=== PATIENT | male | born 1970 | race Caucasian/White ===

== ENCOUNTER 2022-09-15 15:12 | Outpatient (CLI) | payer BC | END 2022-09-15 23:59 | disposition home or self-care (01) | LOC: RAD 15:12 | PROVIDERS: ATTEND Family Medicine | DX: R13.14 Dysphagia, pharyngoesophageal phase (principal); K21.9 Gastro-esophageal reflux disease without esophagitis | CPT/HCPCS: 74230 ==

== ENCOUNTER → 2025-01-17 | Day surgery (SDC) | payer BC, OTHER ==
[2025-01-10 10:00] LABS: BASOPHILS # (AUTO) 0.1 X10'3 (0-0.2); BASOPHILS % (AUTO) 0.8 % (0-1); EOSINOPHILS # (AUTO) 0.2 X10'3 (0-0.9); EOSINOPHILS % (AUTO) 2.3 % (0-6); HEMATOCRIT 46.3 % (42.0-52.0); HEMOGLOBIN 15.8 g/dl (14.0-17.9); LYMPHOCYTES # (AUTO) 1.5 X10'3 (1.1-4.8); LYMPHOCYTES % (AUTO) 20.9 % (21-51); MEAN CORPUSCULAR HEMOGLOBIN 32.8 PG (27.0-31.0); MEAN CORPUSCULAR HGB CONC 34.2 g/dL (33.0-36.5); MEAN CORPUSCULAR VOLUME 96.1 FL (78-98); MEAN PLATELET VOLUME 6.6 FL (7.4-10.4); MONOCYTES # (AUTO) 0.6 X10'3 (0-0.9); NEUTROPHILS # (AUTO) 4.8 X10'3 (1.8-7.7); PLATELET COUNT 310 X10'3 (140-440); RED BLOOD COUNT 4.82 X10'6 (4.70-6.10); RED CELL DISTRIBUTION WIDTH 12.8 % (11.5-14.5); WHITE BLOOD COUNT 7.1 X10'3 (4.5-11.0)
[2025-01-10 10:09] LABS: ALANINE AMINOTRANSFERASE 36 U/L (12-78); ALBUMIN/GLOBULIN RATIO 1.2 (1.1-1.5); ALKALINE PHOSPHATASE 63 IU/L (46-116); ANION GAP 10 (8-16); ASPARTATE AMINO TRANSFERASE 27 U/L (10-37); BILIRUBIN,TOTAL 0.8 MG/DL (0.1-1.0); BLOOD UREA NITROGEN 23 MG/DL (7-18); BUN/CREATININE RATIO 22.1 (10.0-20.0); CALCIUM 9.3 MG/DL (8.5-10.1); CHLORIDE 105 MMOL/L (99-107); CREATININE 1.04 MG/DL (0.60-1.10); GLUCOSE 94 MG/DL (70-104); POTASSIUM 4.7 MMOL/L (3.5-5.1); SODIUM 142 MMOL/L (135-145); TOTAL CARBON DIOXIDE 27.5 MMOL/L (24-32); TOTAL PROTEIN 7.3 G/DL (6.4-8.2); eGFR 74 ML/MIN
[2025-01-17] VITALS (11 sets, daily range): BP systolic 98–141; BP diastolic 57–86; PULSE 46–88; RESP 13–18; TEMP 98.1–98.3; O2SAT 96–100
[~2025-01-17] VITALS: Ht 177.8 cm; Wt 76.0 kg
[~2025-01-17] MED LIST: BUPIVAcaine 2.5mg/ml inj 50ml vial (contains preservative) ONE; ESOM20CA PO; FAMO20TA8 PO; FISH OIL; HYDROmorphone/PF 0.2 MG/ML SYRINGE IV PRN; LIDOcaine 1% 30ml preserv. free vial ONE; LIDOcaine 2% (20mg/ml) 5ml vial ONE; LidoCAINE 2% Topical Jelly 11mL syringe (UROJET) TOP ONE; RED YEAST RICE; VIT D; VITAMIN B 12; VITAMIN B COMPLEX; ZINC; [UNRECOGNIZED DRUG - OTHER]; acetaminophen 1,000mg/100ml IV 100 ML IV PRN; dexamethasone sod phosphate 4mg/ml inj. ONE; fentaNYL /PF 50mcg/ml 5ml ampule ONE; hydrALAZINE 20mg/ml inj. IV PRN; labetalol 20mg/4ml (5mg/ml) syringe IV PRN; meperidine/PF 25mg/ml syringe IV PRN; midazolam 1 mg/ML 2ml injection ONE; morphine 2 MG/ML inj. syringe IV PRN; morphine 4 MG/ML inj SYRINge IV PRN; neostigmine methylsulfate 1 MG/ML 10ml vial ONE; ondansetron/PF 4mg/2ml inj IV PRN; ondansetron/PF 4mg/2ml inj ONE; proCHLORperazine 10 MG/2 ml inj IV PRN; propofol inj 20 ML IV ONE; ringers solution, lacted 1,000 ML IV SCH; rocuronium 10mg/ml inj IV ONE
[2025-01-17] MEDS: ceFAZolin 2gm/dext,iso 50mL 50 ML IV ONE (06:25)
[2025-01-17] MEDS: ringers solution, lacted 1,000 ML IV SCH (06:39)
[2025-01-17] MEDS: famotidine 20mg tablet PO ONE (06:39)
--- NOTE | 2025-01-17 07:28 | HISTORY AND PHYSICAL ---
History & Physical Providers to CC CC: SAMMI MCCANN MD ~ History of Present Illness Reason for Admit\Complaint: Right inguinal hernia History of Present Illness Interval history and physical exam Patient was seen in the office greater than 30 days ago and diagnosed (radiol ogically and clinically) with a symptomatic right inguinal hernia He is here for elective repair He denies any change in his past medical history (please see previous history and physical exam for all pertinent details) He is scheduled for robotic assisted, laparoscopic right, possible left inguinal hernia repair with mesh Allergies: Coded Allergies: No Known Allergies (Unverified , 01/16/25) Home Medications Home Medications Active Reported [Red Yeast Rice] Unknown Strength Unknown Dose [Ca/Mg/Zinc/Vit D] Unknown Strength Unknown Dose [Vitamin B Complex] Unknown Strength Unknown Dose [Vitamin B 12] Unknown Strength Unknown Dose [Fish Oil] Unknown Strength Unknown Dose Famotidine 20 Mg Tablet 1 Tab PO DAILY 30 Days Nexium* (Esomeprazole Magnesium) 20 Mg Capsule 1 Cap PO DAILY ROS ROS Reviewed and negative Exam General: 54-year-old male in no acute distress Chest: Lungs clear to auscultation bilaterally Cardiovascular: Regular rate and rhythm without murmurs Abdomen: Soft and nondistended; right side marked with ink pen Problems: (1) Right inguinal hernia Assessment & Plan: The risks, benefits, and alternatives to a robotic assisted, laparoscopic right, possible left inguinal hernia repair with mesh were discussed with the patient and his spouse. Risks include, but are not limited to, bleeding, infection, injury to intra-abdominal structures, hernia recurrence and chronic postoperative pain. Patient verbalized understanding and wishes to proceed with surgery. We will do so today as scheduled SAMMI MCCANN MD January 17, 2025 07:28
[2025-01-17] MEDS: BUPIVAcaine/PF 2.5 mg/ml (0.25%) 30ml vial IJ ONE (07:34)
[2025-01-17] MEDS: HYDROmorphone/PF 0.2 MG/ML SYRINGE IV PRN (09:06)
--- NOTE | 2025-01-17 09:20 | OPERATIVE REPORT ---
Operative Report Providers to CC: EDILBERTO MCCANN MD ~ Date of Procedure: January 17, 2025 Pre-Operative Diagnosis: Right inguinal hernia Post-Operative Diagnosis Bilateral inguinal hernia Procedure Performed Robotic assisted, laparoscopic bilateral inguinal hernia repair with mesh Surgeon: Edilberto Mccann MD FACS Stiff Leg Operator None Anesthesiologist: Ashley Gimenez Type of Anesthesia: General Findings: Indirect right inguinal hernia Indirect left inguinal hernia Wound class one Complications None Prosthetics\Implants used: Large Dextile mesh-bilateral Estimated Blood Loss: Minimal Specimen Removed: None Description of Procedure: Patient was brought to the operating room and identified by the nursing staff and the attending physician. Patient was placed supine and general anesthesia was induced. The patient's abdomen was prepped and draped in the standard sterile fashion. Preoperative antibiotics were given. Supraumbilical, midline incision was made to accommodate a 12 mm Gallagher port. Gallagher technique was used to gain access into the abdomen and the port was anchored to the fascia with 0 Vicryl suture. Abdomen was insufflated without incident. Laparoscope was ins erted and the pelvis examined. Patient was placed in Trendelenburg position. Secondary, 8.5 mm robotic trochars were then placed in the right lateral left lateral upper abdomen just above the umbilical line. These were placed under laparoscopic guidance. Local anesthetic was infiltrated prior to their insertion. The da Zakia robotic arm was docked to the patient. Instruments w ere guided intra-abdominally under laparoscopic visualization. Peritoneal rent was created starting at the left anterior superior iliac spine and carried across the anterior abdominal wall to the contralateral anterior superior iliac spine. The peritoneal flap was created and carried down to the symphysis pubis. Dissection was carried out bilaterally. On the right, a moderate-sized indirect inguinal hernia was encountered and reduced. On the left, a small to moderate-sized indirect inguinal hernia was encountered and reduced. Peritoneum was dissected away from the cord structures and out laterally to accommodate 2 separate pieces of large Dextile mesh. Bilateral critical views of the myopectineal orifice were obtained. Mesh and suture was passed into the abdomen. Bilateral mesh was placed covering potential obturator, femoral, direct, and indirect hernia spaces. Mesh was anchored at Oscar's ligament, rectus muscle in the midline, and out laterally just anterior to the anterior superior iliac spine. Mesh laid without wrinkles or folds. Peritoneal rent was then reapproximated with running, absorbable 2/0 V-lock suture. [place] were retrieved. Abdomen was allowed to desufflate after instruments removed and da Zakia robotic arm undocked from the patient. Umbilical port was removed as were the secondary trochars. The fascia at the umbilical port site was closed with 0 Vicryl sutures. Skin was closed at all sites with 4-0 Monocryl sutures in a subcuticular fashion. Sterile dressings were applied. Patient was awakened and taken to the postanesthesia care unit in stable condition. Counts repoted as correct: Yes EDILBERTO MCCANN MD January 17, 2025 09:20
[2025-01-17] MEDS: HYDROcodone/acetaminophen 5mg/325mg tablet PO PRN (11:56)
== END | disposition home or self-care (01) ==
LOC: PAS 05:51
PROVIDERS: ATTEND Surgery
DX: K40.20 Bilateral inguinal hernia, without obstruction or gangrene, not specified as recurrent (principal); K21.9 Gastro-esophageal reflux disease without esophagitis; Z79.899 Other long term (current) drug therapy; Z98.890 Other specified postprocedural states
CPT/HCPCS: 36415; 49650; 80053; 82948; 85025; C1781; J1100; J1171; J2003; J2250; J2405; J2704; J2710; J3010; J3490; J7030; J7120; S2900; Z7506; Z7508; Z7512; A4215; A4314; A4618

== ENCOUNTER → 2025-05-09 | Day surgery (SDC) | payer OTHER ==
[2025-05-02 10:38] LABS: MEAN PLATELET VOLUME 6.5 FL (7.4-10.4); PRE OP HEMATOCRIT 44.9 % (42.0-52.0); PRE OP HEMOGLOBIN 15.6 g/dL (14.0-17.9); PRE OP PLATELET COUNT 300 X10'3 (140-440); PRE OP WHITE BLOOD COUNT 7.1 10'3 (4.8-10.8); RED CELL DISTRIBUTION WIDTH 12.8 % (11.5-14.5)
[2025-05-02 11:09] LABS: CREATININE 0.95 MG/DL (0.60-1.10); PRE OP ALT 38 U/L (30-65); PRE OP ANION GAP 10 (8-16); PRE OP AST 21 U/L (10-37); PRE OP BILIRUB, TOTAL 0.6 MG/DL (0.0-1.0); PRE OP GLUCOSE 100 MG/DL (70-104); PRE OP POTASSIUM 4.3 MMOL/L (3.4-5.1); PRE OP SODIUM 144 MMOL/L (135-145); TOTAL CARBON DIOXIDE 28.6 MMOL/L (24-32); eGFR 82 ML/MIN
[~2025-05-09] VITALS: Ht 175.3 cm; Wt 73.6 kg
[2025-05-09] VITALS (16 sets, daily range): BP systolic 113–144; BP diastolic 63–84; PULSE 59–112; RESP 8–16; TEMP 98; O2SAT 91–100
[~2025-05-09] MED LIST changes: +CALC625T31 PO; -FAMO20TA8 PO; -FISH OIL; +LACT1CAP26 PO; +LIDOcaine 1% (10mg/ml)w/preservative inj. 20ml MDV ONE; -LIDOcaine 1% 30ml preserv. free vial ONE; -LidoCAINE 2% Topical Jelly 11mL syringe (UROJET) TOP ONE; +MAG/CAL/ZINC; +OMEG-5 PO; +SAW PALMETTO; -VIT D; -VITAMIN B 12; -VITAMIN B COMPLEX; -ZINC; -[UNRECOGNIZED DRUG - OTHER]; -acetaminophen 1,000mg/100ml IV 100 ML IV PRN; +ePHEDrine 50MG/ML INJ. ONE; +glycopyrrolate 0.2mg/ml inj ONE; -meperidine/PF 25mg/ml syringe IV PRN; -morphine 2 MG/ML inj. syringe IV PRN; -neostigmine methylsulfate 1 MG/ML 10ml vial ONE; -proCHLORperazine 10 MG/2 ml inj IV PRN; -ringers solution, lacted 1,000 ML IV SCH
[2025-05-09] MEDS: ringers solution, lacted 1,000 ML IV SCH ×2 (06:01→09:52)
--- NOTE | 2025-05-09 07:34 | HISTORY AND PHYSICAL ---
History & Physical Providers to CC CC: SAMMI MCCANN MD ~ History of Present Illness Reason for Admit\Complaint: Symptomatic paraesophageal hernia History of Present Illness 54-year-old patient with known paraesophageal hernia, intractable reflux Interval history and physical exam Patient was seen in the office greater than 30 days ago for follow up regarding his EGD with biopsy He has a [id number] sliding hiatal (type 1 paraesophageal) hernia He denies any change in his past medical history since he was seen in the office (please see previous history and physical exam for all pertinent details) He is scheduled today for a robotic assisted, laparoscopic paraesophageal hernia repair with mesh Allergies: Coded Allergies: No Known Allergies (Unverified , 01/16/25) Home Medications Home Medications Active Reported Culturelle (Lactobacillus Rhamnosus) 10 Billion Cell Capsule 1 Cap PO DAILY Fiber Tabs (Calcium Polycarbophil) 625 Mg Tablet 5 Tab PO DAILY Fish Oil 1,000 Mg Softgel (Docosahexanoic Acid/Epa) 300 Mg-1,000 Mg Capsule 1 Cap PO DAILY WITH MEALS [Red Yeast Rice] [Saw [place]] [Mag/Ruperto/Zinc] Nexium* (Esomeprazole Magnesium) 20 Mg Capsule 1 Cap PO DAILY Exam Vitals: Vital Signs Date Time Temp Pulse Resp B/P (MAP) Pulse Ox O2 Delivery O2 Flow Rate FiO2 05/09/25 05:39 98.0 59 16 116/65 (82) 98 05/09/25 05:39 Room Air Chest: Lungs clear to auscultation bilaterally Cardiovascular: Regular rate and rhythm without murmurs Abdomen: Soft and nondistended Problems: (1) Paraesophageal hernia Assessment & Plan: The risks, benefits, and alternatives to a robotic assisted, laparoscopic paraesophageal hernia repair with mesh were discussed with the patient. Risks include, but are not limited to, bleeding, infection, injury to intra-abdominal structures, hernia recurrence and the need for additional surgical procedures. Patient verbalized understanding and wishes to proceed wit h surgery. We will do so today as scheduled SAMMI MCCANN MD May 09, 2025 07:34
[2025-05-09] MEDS: ceFAZolin 2gm/dext,iso 50mL 50 ML IV ONE (07:38)
[2025-05-09] MEDS: BUPIVAcaine/PF 2.5 mg/ml (0.25%) 30ml vial IJ ONE (07:53)
[2025-05-09] MEDS: LIDOcaine 1% 30ml preserv. free vial IJ ONE (07:53)
--- NOTE | 2025-05-09 09:54 | OPERATIVE REPORT ---
Operative Report Providers to CC CC: EDILBERTO MCCANN MD ~ Date of Procedure: May 09, 2025 Pre-Operative Diagnosis: Paraesophageal hernia Post-Operative Diagnosis SAME as PRE-Op Procedure Performed Robotic assisted, laparoscopic paraesophageal hernia repair with mesh Surgeon: Edilberto Mccann MD FACS Service Mechanic None Anesthesiologist: Ashley Gimenez Type of Anesthesia: General Findings: Type 1 paraesophageal (sliding hiatal) hernia Wound class I Complications None Prosthetics\Implants used: Phasix mesh Estimated Blood Loss: 10 cc Specimen Removed: GE fat pad excised and discarded Description of Procedure: Patient was brought to the operating room and identified by the nursing staff and the attending physician. Patient was placed supine and general anesthesia was induced. Preoperative antibiotics were given. Villanueva catheter was placed. The abdomen was prepped and draped in the standard sterile fashion. At Mendoza's point, Veress needle technique was used through a stab incision to access and insufflate the abdomen. This was accomplished without incident. An optical, 12 mm trocar was used to gain access to the abdomen in the left upper quadrant under laparoscopic visualization. Additional 8.5 mm robotic trochars were placed under laparoscopic visualization in the left lateral upper abdomen, left epigastrium and right upper quadrant. Patient was placed in steep, reverse Trendelenburg position. The da Zakia robotic arm was docked to the patient and instruments guided into the abdomen under laparoscopic visualization. The left lobe of the liver was lifted and the hiatus inspected. Moderate-sized hiatal defect was noted consistent with a type I paraesophageal hernia. An 18 inch, 0, V-Loc suture was used to sling the left lobe of the liver up to the anterior abdominal wall. With the stomach retracted towards the patient's left upper quadrant, dissection was initiated along the pars flaccida and the lesser sac was entered. The lesser omentum was divided up to the right trace. There was a replaced left hepatic artery that was preserved and protected throughout the case. Dissection was carried in to the mediastinum. The mediastinal space was entered. Dissection was then carried posteriorly along the right trace, taking care to leave peritoneum overlying the muscles. Once the posterior decussation was encountered, attention was then turned to the short gastric vessels. Stomach was retracted toward the patient's right and the short gastric vessels were placed on tension. The short gastric vessels were divided along the upper portion of the greater curvature, up to the phrenoesophageal ligament which was also then divided. The peritoneal reflection of the left cru s was opened and dissection carried up until the apex of the crura was reached. Dissection was carried up into the mediastinum, mobilizing the esophagus from the retrocardiac space and taking care not to injure the bilateral pleura. The entire hernia sac which was relatively small in size, was mobilized out of the mediastinum and reduced into the abdomen. Excess sac was dissected at the level of the gastroesophageal fat pad and set aside. The retroesophageal space was developed. The GE junction was retracted anteriorly and the mediastinal dissection was carried out posterior to the esophagus. Dissection continued until at least 3 cm of intra-abdominal esophagus was obtained without any retraction on the stomach. With the stomach retracted anteriorly, adequate space and visualization was obtained to allow for the crural repair. Strips of bioabsorbable, Phasix mesh were used to reinforce the crural repair. A strip of mesh was placed over each crura and used for reapproximation without tension. Attention was then turned to the gastropexy. Fundus was anchored to the upper left portion of the hiatus with full-thickness crural sutures. The suture was then run along the greater curvature creating a gastropexy to the anterior abdominal wall. Care was taken to stay medial to the phrenic nerve and vascular bundle. About a fourth of the gastric fundus was anchored to the anterior abdominal wall. Attention was then turned to the modified Hill procedure/augmentation stitch. The angle of His was then recreated with a running, 2/0, nonabsorbable, V-Loc suture. This was run between the fundus and the lateral border of the intra-abdominal esophagus. This suture was run up to the level of the left trace. Gastropexy was then completed by running the midportion of the gastric fundus towards the initial gastropexy suture and anchoring the 2 together. [place] and sutures were retrieved. The da Zakia robotic arm was undocked from the patient. The 12 mm port was removed and the fascial defect closed percutaneously with 0 Vicryl suture. Remaining ports were removed and the abdomen was allowed to deflate. Skin was closed at all sites with 4-0 Monocryl sutures and dressed with Dermabond. Patient was extubated and transferred to the postanesthesia care unit in stable condition. Counts repoted as correct: Yes EDILBERTO MCCANN MD May 09, 2025 09:54
[2025-05-09] MEDS: morphine 4 MG/ML inj SYRINge IV PRN (10:09)
[2025-05-09] MEDS: acetaminophen 1,000mg/100ml IV 100 ML IV PRN (10:09)
--- NOTE | 2025-05-09 10:52 | RADIOLOGY REPORT ---
EXAM: DI CHEST,SINGLE VIEW Indication: POSTOP Technique: Single frontal view of the chest was obtained Comparison: None FINDINGS: Lines and Tubes: None Lungs: Mild pulmonary vascular congestion. Pleura: No effusion. No pneumothorax. Cardiomediastinal contours: Unremarkable. Subcutaneous gas is visualized in the bilateral neck. Bones: No acute osseous abnormality. IMPRESSION: Mild pulmonary vascular congestion. Subcutaneous gas is visualized in the bilateral neck.
[2025-05-09] MEDS: oxyCODONE/APAP 5-325mg tablet PO PRN (10:58)
== END | disposition home or self-care (01) ==
LOC: PAS 05:29
PROVIDERS: ATTEND Surgery
DX: K44.9 Diaphragmatic hernia without obstruction or gangrene (principal); K21.9 Gastro-esophageal reflux disease without esophagitis; J44.9 Chronic obstructive pulmonary disease, unspecified; Z79.899 Other long term (current) drug therapy; Z98.890 Other specified postprocedural states
CPT/HCPCS: 36415; 71045; 80053; 82948; 85025; A4314; A4618; C1781; J0131; J1100; J2003; J2250; J2270; J2405; J2704; J2710; J3010; J3490; J7120